=== PATIENT | male | born 1985 | race Caucasian/White ===

== ENCOUNTER 2017-03-12 19:36 | Emergency (ER) | payer OTHER ==
[~2017-03-12] VITALS: Ht 177.8 cm; Wt 85.0 kg
[~2017-03-12 19:36] MED LIST: CEPH500C3 PO; LACT PO
[2017-03-12 19:39] VITALS: BP 144/101; PULSE 81; RESP 16; TEMP 98.7; O2SAT 99
[2017-03-12] MEDS ORDERED: BUPIVACAINE HCL PF 0.5% 30 ML VIAL INFIL ONE (20:00)
[2017-03-12] MEDS ORDERED: TETANUS/DIPHTHERIA TOXOID ADULT 0.5 ML VIAL IM ONE (20:00)
[2017-03-12] MEDS ORDERED: LIDOCAINE HCL 1% 30 ML VIAL INFIL ONE (20:00)
[2017-03-12] MEDS ORDERED: DICL50TA3 PO (20:01)
--- NOTE | 2017-03-12 20:09 | PD ---
HPI Chief Complaint: Laceration/Skin Injury Time Seen by Provider: 20:06 Travel History International Travel<30 days: No Contact w/Intl Traveler<30days: No Traveled to known affect area: No History of Present Illness HPI 31-year-old [id number] white male presents to emergency department with a laceration to the tip of his left thumb. He states that he accidentally cut it with a knife at work today. He states that he has decreased sensation in the tip. No other injury. He has not had a tetanus shot over 5 years. He states his fingers throbbing moderate in intensity. No alleviating factor PFSH Past Medical History Anxiety: No Depression: No Cancer: No Cardiovascular Problems: No Endocrine: No Gastrointestinal Disorders: Yes (GI BLEED) Genitourinary: No Immune Disorder: No Musculoskeletal: No Neurologic: No Psychiatric: No Reproductive: No Respiratory: No Tetanus Vaccination: Unknown Influenza Vaccination: No Past Surgical History Surgical History: No Previous Surgery Social History Alcohol Use: No Tobacco Use: Yes Substance Use: No Allergies-Medications (Allergen,Severity, Reaction): Coded Allergies: No Known Allergies (Unverified , 06/17/14) Uncoded Allergies: NO NARCOTICS (Adverse Reaction, Unknown, 03/21/16) Reported Meds & Prescriptions Reported Meds & Active Scripts Active Diclofenac Sodium DR (Diclofenac Sodium) 50 Mg Tabdr 50 Mg PO TID Lactinex (Lactobacillus Acidophilus) 1 Tab Tab 1 Tab PO Q12HR 30 Days Keflex (Cephalexin Monohydrate) 500 Mg Cap 500 Mg PO Q6 7 Days Review of Systems Except as stated in HPI: all other systems reviewed are Neg Physical Exam Narrative GENERAL: Well-developed, well-nourished in no acute distress. Nontoxic appearing. HEAD: Normocephalic, atraumatic. EYES: Pupils equal round and reactive. Extraocular motions intact. No scleral icterus. No injection or drainage. ENT: TMs clear without erythema. The external auditory canals clear. Nose: clear . Posterior pharynx is pink and moist. No tonsillar edema or exudate. Uvula midline. Airway patent. NECK: Trachea midline.Supple, nontender, moves head freely. No central bony tenderness or spasm. CARDIOVASCULAR: Regular rate and rhythm without murmurs, gallops, or rubs. RESPIRATORY: Clear to auscultation. Breath sounds equal bilaterally. No wheezes , rales, or rhonchi. GASTROINTESTINAL: Abdomen soft, non-tender, nondistended. No hepato-splenomegaly , or palpable masses. No guarding. EXTREMITIES: No clubbing, cyanosis, or edema. No joint tenderness, effusion, or edema noted. Patient has a partial distal tip amputation laceration to the left thumb. The tip of the nailbed is lacerated. It is held on by a small pedicle. He has hypoesthesia in the distal tip. Positive Refill. He is able to flex and extend his thumb without difficulty. No bone exposure. BACK: Nontender without deformity or crepitance. No flank tenderness. Data Data Last Documented VS Vital Signs Date Time Temp Pulse Resp B/P Pulse Ox O2 Delivery O2 Flow Rate FiO2 03/12/17 19:39 98.7 81 16 144/101 99 Orders Bupivacaine Pf 0.5% Inj (Marcaine Pf 0.5 (03/12/17 20:00) Lidocaine 1% Inj (Xylocaine 1% Inj) (03/12/17 20:00) Tetanus/Diphtheria Tox Adult (Tetanus/Di (03/12/17 20:00) MDM Medical Decision Making Medical Screen Exam Complete: Yes Emergency Medical Condition: Yes Medical Record Reviewed: Yes Differential Diagnosis MDM: High Differential diagnoses: Fracture, sprain, strain, dislocation, contusion, neurovascular injury Narrative Course Patient's tetanus status updated. Patient's laceration is closed with sutures. Procedures Procedure Narrative LACERATION LOCATION: Left thumb distal tip LENGTH: 2.3 cm NUMBER OF STITCHES/DENISE: 5 REPAIR: The area of the laceration was prepped with Betadine and sterilely draped. The laceration was infiltrated with 1% lidocaine and 0.5% Marcaine digital block. The wound was copiously irrigated and explored without evidence of foreign body, tendon injury or neurovascular injury. The wound was closed using 4-0 proline. This was a simple single layer repair. A sterile dressing was applied. The patient was advised to keep the dressing clean and dry. Patient tolerated the procedure well. Diagnosis Primary Impression: left thumb partial tip amputation Patient Instructions: General Instructions Additional Instructions: Rest. Elevation. Medications as directed. Daily wound care with soap, water, Neosporin. Sutures out in 12-14 days. Return to the ER if any problems. Med/Other Pt SpecificInfo: Prescription(s) given Scripts Diclofenac Sodium DR 50 Mg Tabdr50 Mg PO TID #21 TAB Prov:Bhupendra Martinez MD 03/12/17 Disposition: 01 DISCHARGE HOME Condition: Stable Tye Peterson Mar 12, 2017 20:09
== END 2017-03-12 21:15 | disposition home or self-care (01) ==
LOC: NEPK 19:36
DX: S61.012A Laceration without foreign body of left thumb without damage to nail, initial encounter (principal); Z23 Encounter for immunization; W26.0XXA Contact with knife, initial encounter; Y93.9 Activity, unspecified; Y92.89 Other specified places as the place of occurrence of the external cause; Z72.0 Tobacco use
CPT/HCPCS: 12001; 90471; 90714

== ENCOUNTER 2017-03-17 16:12 | Emergency (ER) | payer SELFPAY ==
[~2017-03-17] VITALS: Ht 180.3 cm; Wt 110.0 kg
[~2017-03-17 16:12] MED LIST changes: +DICL50TA3 PO
[2017-03-17 16:13] VITALS: BP 139/80; PULSE 86; RESP 14; TEMP 98; O2SAT 99
--- NOTE | 2017-03-17 16:39 | PD ---
HPI . left thumb suture check Chief Complaint: Wound/Suture/Staple Re-Check Time Seen by Provider: 16:39 Travel History International Travel<30 days: No Contact w/Intl Traveler<30days: No Traveled to known affect area: No History of Present Illness HPI 31-year-old male here for recheck of his left thumb sutures. He tells me one of the sutures is loose. He has no other complaints otherwise. PFSH Past Medical History Anxiety: No Depression: No Cancer: No Cardiovascular Problems: No Endocrine: No Gastrointestinal Disorders: Yes (GI BLEED) Genitourinary: No Immune Disorder: No Musculoskeletal: No Neurologic: No Psychiatric: No Reproductive: No Respiratory: No Social History Alcohol Use: No Tobacco Use: Yes Substance Use: No Allergies-Medications (Allergen,Severity, Reaction): Coded Allergies: No Known Allergies (Unverified , 06/17/14) Uncoded Allergies: NO NARCOTICS (Adverse Reaction, Unknown, 03/21/16) Reported Meds & Prescriptions Reported Meds & Active Scripts Active Diclofenac Sodium DR (Diclofenac Sodium) 50 Mg Tabdr 50 Mg PO TID Lactinex (Lactobacillus Acidophilus) 1 Tab Tab 1 Tab PO Q12HR 30 Days Keflex (Cephalexin Monohydrate) 500 Mg Cap 500 Mg PO Q6 7 Days Review of Systems General / Constitutional: No: Fever Eyes: No: Visual changes HENT: No: Headaches Cardiovascular: No: Chest Pain or Discomfort Respiratory: No: Shortness of Breath Gastrointestinal: No: Abdominal Pain Genitourinary: No: Dysuria Musculoskeletal: No: Pain Skin: Positive Other (left thumb suture), No Rash Neurologic: No: Weakness Psychiatric: No: Depression Endocrine: No: Polydipsia Hematologic/Lymphatic: No: Easy Bruising Physical Exam Narrative GENERAL: AAO x 3, no acute distress, Well-nourished, well-developed patient. SKIN: Warm and dry. No visible rashes or bruising. left distal thumb with [address], one suture loose and falling out. no wound dehiscence or evidence of infection HEAD: Normocephalic and atraumatic. EYES: No scleral icterus. No injection or drainage. ENT: No nasal drainage noted.. Airway patent. NECK: Supple, trachea midline. No JVD. CARDIOVASCULAR: Regular rate and rhythm without murmurs, gallops, or rubs. RESPIRATORY: Breath sounds equal bilaterally. No accessory muscle use. No rhonchi or rales. GASTROINTESTINAL: Visual inspection normal EXTREMITIES: No cyanosis or edema. Range of motion bilateral hands normal BACK: Nontender without obvious deformity. No CVA tenderness. PSYCH: AAO x 3, normal affect. Data Data Last Documented VS Vital Signs Date Time Temp Pulse Resp B/P Pulse Ox O2 Delivery O2 Flow Rate FiO2 03/17/17 16:13 98.0 86 14 139/80 99 MDM Medical Decision Making Medical Screen Exam Complete: Yes Emergency Medical Condition: Yes Medical Record Reviewed: Yes Differential Diagnosis Suture recheck, wound has a, less likely cellulitis Narrative Course 31-year-old male here for recheck of his left thumb sutures. He tells me one of the sutures is loose. He has no other complaints otherwise. Patient seen and examined. His sutures are intact except for one, which has been removed. There are 4 sutures remaining. Explained to patient that these can be removed in the next 2 days. Patient verbalized understanding of instructions, questions were answered, and thanked me for their care. I advised them if their condition worsens, please return to the nearest emergency room for further care. Diagnosis Primary Impression: Thumb laceration Qualified Code: S61.012D - Thumb laceration, left, subsequent encounter Patient Instructions: Acute Wound Care (ED), General Instructions, Laceration ( ED) Additional Instructions: Return in 2 days for removal of sutures. There are 4 remaining. Disposition: 01 DISCHARGE HOME Condition: Stable Preeti Kenny March 17, 2017 16:39
== END 2017-03-17 17:03 | disposition home or self-care (01) ==
LOC: NEPK 16:12
DX: S61.012D Laceration without foreign body of left thumb without damage to nail, subsequent encounter (principal); X58.XXXD Exposure to other specified factors, subsequent encounter
CPT/HCPCS: 99281

== ENCOUNTER 2017-06-26 15:17 | Emergency (ER) | payer SELFPAY ==
[~2017-06-26] VITALS: Ht 180.3 cm; Wt 109.0 kg
[2017-06-26 15:18] VITALS: BP 137/93; PULSE 83; RESP 18; TEMP 98.7; O2SAT 98
--- NOTE | 2017-06-26 15:25 | PD ---
Physical Exam Time Seen by Provider: 15:23 Narrative 31yo M c/o abd pain, nausea, and diarrhea started today. Denies fever, vomiting. Patient seen in triage. VS reviewed. Awaiting bed placement. Data Data Last Documented VS Vital Signs Date Time Temp Pulse Resp B/P Pulse Ox O2 Delivery O2 Flow Rate FiO2 06/26/17 15:18 98.7 83 18 137/93 98 Room Air MDM Supervised Visit with DAVIS: No Scripts No Active Prescriptions or Reported Meds Silvana Naranjo Jun 26, 2017 15:25
[2017-06-26] MEDS ORDERED: SODIUM CHLOR 0.9% 1000 ML INJ 1,000 ML IV SCH (17:10)
--- NOTE | 2017-06-26 17:13 | PD ---
HPI Chief Complaint: Abdominal Pain Time Seen by Provider: 17:05 Travel History International Travel<30 days: No Contact w/Intl Traveler<30days: No Traveled to known affect area: No History of Present Illness HPI 31-year-old male here for evaluation of abdominal cramping, nausea, and diarrhea. Symptoms started this afternoon. He denies vomiting. Reports similar episode a couple years ago after eating oysters. Denies history of abdominal surgeries. He is not sure if he has had any fevers. Abdominal cramping is epigastric. PFSH Past Medical History Medical History: Denies Significant Hx Anxiety: No Depression: No Cancer: No Cardiovascular Problems: No Endocrine: No Gastrointestinal Disorders: Yes (GI BLEED) Genitourinary: No Hypertension: Yes Immune Disorder: No Musculoskeletal: No Neurologic: No Psychiatric: No Reproductive: No Respiratory: No Past Surgical History Surgical History: No Previous Surgery Social History Alcohol Use: No Tobacco Use: Yes (/2 PPD) Substance Use: No Allergies-Medications (Allergen,Severity, Reaction): Coded Allergies: No Known Allergies (Unverified , 06/26/17) Uncoded Allergies: NO NARCOTICS (Adverse Reaction, Unknown, 03/21/16) Reported Meds & Prescriptions Reported Meds & Active Scripts Active No Active Prescriptions or Reported Medications Review of Systems Except as stated in HPI: all other systems reviewed are Neg Physical Exam Narrative GENERAL: Well-developed, well-nourished, comfortable, no apparent distress. SKIN: Focused skin assessment warm/dry. HEAD: Atraumatic. Normocephalic. EYES: Pupils equal and round. No scleral icterus. No injection or drainage. ENT: Mucous membranes pink and moist. CARDIOVASCULAR: Regular rate and rhythm. No murmur appreciated. RESPIRATORY: No accessory muscle use. Clear to auscultation. Breath sounds equal bilaterally. GASTROINTESTINAL: Abdomen soft, nondistended. Mild epigastric tenderness without peritoneal signs. Rest of abdomen is soft and nontender. Normal bowel sounds. No hernias. MUSCULOSKELETAL: No obvious deformities. No clubbing. No cyanosis. No edema. NEUROLOGICAL: Awake and alert. No obvious cranial nerve deficits. Motor grossly within normal limits. Normal speech. PSYCHIATRIC: Appropriate mood and affect; insight and judgment normal. Data Data Last Documented VS Vital Signs Date Time Temp Pulse Resp B/P Pulse Ox O2 Delivery O2 Flow Rate FiO2 06/26/17 17:23 100 Room Air 06/26/17 17:23 72 18 140/91 06/26/17 15:18 98.7 Orders Complete Blood Count With Diff (06/26/17 17:10) Comprehensive Metabolic Panel (06/26/17 17:10) Lipase (06/26/17 17:10) Prothrombin Time / Inr (Pt) (06/26/17 17:10) Act Partial Throm Time (Ptt) (06/26/17 17:10) Urinalysis - C+S If Indicated (06/26/17 17:10) Iv Access Insert/Monitor (06/26/17 17:10) Ecg Monitoring (06/26/17 17:10) Oximetry (06/26/17 17:10) Ondansetron Inj (Zofran Inj) (06/26/17 17:15) Sodium Chlor 0.9% 1000 Ml Inj (Ns 1000 M (06/26/17 17:10) Sodium Chloride 0.9% Flush (Ns Flush) (06/26/17 17:15) Electrocardiogram (06/26/17 17:10) Labs Laboratory Tests Test 06/26/17 06/26/17 17:30 17:31 Urine Color YELLOW Urine Turbidity CLEAR Urine pH 6.0 Urine Specific [place] 1.017 Urine Protein NEG mg/dL Urine Glucose (UA) NEG mg/dL Urine Ketones NEG mg/dL Urine Occult Blood NEG Urine Nitrite NEG Urine Bilirubin NEG Urine Urobilinogen LESS THAN 2.0 MG/DL Urine Leukocyte Esterase NEG Urine RBC LESS THAN 1 /hpf Urine WBC LESS THAN 1 /hpf Microscopic Urinalysis Comment CULT NOT INDICATED White Blood Count 7.5 TH/MM3 Red Blood Count 4.82 MIL/MM3 Hemoglobin 15.2 GM/DL Hematocrit 43.6 % Mean Corpuscular Volume 90.4 FL Mean Corpuscular Hemoglobin 31.5 PG Mean Corpuscular Hemoglobin 34.9 % Concent Red Cell Distribution Width 13.0 % Platelet Count 225 TH/MM3 Mean Platelet Volume 8.2 FL Neutrophils (%) (Auto) 67.3 % Lymphocytes (%) (Auto) 23.0 % Monocytes (%) (Auto) 8.0 % Eosinophils (%) (Auto) 1.4 % Basophils (%) (Auto) 0.3 % Neutrophils # (Auto) 5.1 TH/MM3 Lymphocytes # (Auto) 1.7 TH/MM3 Monocytes # (Auto) 0.6 TH/MM3 Eosinophils # (Auto) 0.1 TH/MM3 Basophils # (Auto) 0.0 TH/MM3 CBC Comment DIFF FINAL Differential Comment Prothrombin Time 10.1 SEC Prothromb Time International 0.9 RATIO Ratio Activated Partial 25.2 SEC Thromboplast Time Sodium Level 137 MEQ/L Potassium Level 4.1 MEQ/L Chloride Level 103 MEQ/L Carbon Dioxide Level 28.5 MEQ/L Anion Gap 6 MEQ/L Blood Urea Nitrogen 13 MG/DL Creatinine 0.80 MG/DL Estimat Glomerular Filtration 112 ML/MIN Rate Random Glucose 88 MG/DL Calcium Level 9.2 MG/DL Total Bilirubin 0.5 MG/DL Aspartate Amino Transf 23 U/L (AST/SGOT) Alanine Aminotransferase 41 U/L (ALT/SGPT) Alkaline Phosphatase 90 U/L Total Protein 7.8 GM/DL Albumin 4.0 GM/DL Lipase 104 U/L [facility] Medical Decision Making Medical Screen Exam Complete: Yes Emergency Medical Condition: Yes Medical Record Reviewed: Yes Differential Diagnosis Gastritis, peptic ulcer disease, pancreatitis, hepatobiliary disease, food poisoning, colitis, appendicitis less likely Narrative Course Vital signs show heart rate 83, blood pressure 137/93, pulse ox 98% on room air , oral temp of 98.7F. CBC is unremarkable. CMP is unremarkable. Lipase is 104. UA is not suggestive of UTI. Patient was made aware of all findings. He is resting comfortably. He has some epigastric tenderness which is mild. There are no peritoneal signs. I do not believe that there is an acute intra-abdominal process/surgical process to warrant imaging at this time. This was discussed with the patient at length. He also believes that he may have food poisoning. At this point I believe he is stable for discharge home with outpatient follow-up with a primary care physician this week. Patient informed to keep hydrated. He was informed on when to return to the emergency department. He verbalizes understanding and agreement with plan. Diagnosis Primary Impression: Epigastric abdominal pain Additional Impressions: Nausea Diarrhea Qualified Code: R19.7 - Diarrhea, unspecified type Referrals: Primary Care Physician 3 days Additional Instructions: Follow-up with a primary care physician this week. See hydrated with plenty of fluids. Return to the emergency department for worsening symptoms or any other concerns. Scripts Ondansetron Odt (Zofran Odt)4 Mg Tab4 Mg SL Q8HR PRN (Nausea/Vomiting) #30 TAB Ref 0 Prov:Sergey Grimes MD 06/26/17 Pantoprazole (Protonix)40 Mg Tab40 Mg PO DAILY #30 TAB Ref 0 Prov:Sergey Grimes MD 06/26/17 Disposition: 01 DISCHARGE HOME Condition: Stable Sergey Grimes MD Jun 26, 2017 17:13
[2017-06-26] MEDS ORDERED: SODIUM CHLORIDE 0.9% FLUSH 10 ML FLUSH IV FLUSH PRN (17:15)
[2017-06-26] MEDS ORDERED: ONDANSETRON HCL 4 MG/2 ML VIAL IVP ONE (17:15)
[2017-06-26 17:23] VITALS: BP 140/91; PULSE 72; RESP 18; O2SAT 100
[2017-06-26 18:03] LABS: AUTOMATED NEUTROPHIL # 5.1 TH/MM3 (1.8-7.7); BASOPHIL % 0.3 % (0.0-2.0); EOSINOPHIL # 0.1 TH/MM3 (0-0.4); EOSINOPHIL % 1.4 % (0.0-4.0); HEMATOCRIT 43.6 % (39.0-51.0); HEMO FLAGS DIFF FINAL; LYMPHOCYTE # 1.7 TH/MM3 (1.0-4.8); MEAN CELL VOLUME 90.4 FL (80.0-100.0); MEAN CORPUSCULAR HEMOGLOBIN 31.5 PG (27.0-34.0); MEAN CORPUSCULAR HGB CONC 34.9 % (32.0-36.0); NEUT % 67.3 % (16.0-70.0); PLATELET COUNT 225 TH/MM3 (150-450); RED BLOOD COUNT 4.82 MIL/MM3 (4.50-5.90); WHITE BLOOD COUNT 7.5 TH/MM3 (4.0-11.0)
[2017-06-26 18:06] LABS: BLOOD, URINE NEG (NEG); COMMENT (UR) CULT NOT INDICATED; CULTURE IF INDICATED CULT NOT INDICATED; GLUCOSE,URINE NEG (NEG); KETONE, URINE NEG (NEG); NITRITE,URINE NEG (NEG); URINE COLOR YELLOW (YELLW/STRAW)
[2017-06-26 18:16] LABS: APTT (PATIENT) 25.2 SEC (24.3-30.1); INTERNATIONAL NORMALIZED RATIO 0.9 RATIO; PROTHROMBIN TIME - PATIENT 10.1 SEC (9.8-11.6)
[2017-06-26 18:24] LABS: ALT (GPT) 41 U/L (12-78); ANION GAP 6 MEQ/L (5-15); AST (GOT) 23 U/L (15-37); BICARBONATE 28.5 MEQ/L (21.0-32.0); BLOOD UREA NITROGEN 13 MG/DL (7-18); CHLORIDE 103 MEQ/L (98-107); GLOMERULAR FILTRATION RATE 112 ML/MIN (>89); POTASSIUM 4.1 MEQ/L (3.5-5.1); SODIUM (NA) 137 MEQ/L (136-145)
[2017-06-26 18:26] LABS: ALKALINE PHOSPHATASE 90 U/L (45-117); TOTAL BILIRUBIN ADULT 0.5 MG/DL (0.2-1.0)
[2017-06-26] MEDS ORDERED: PROT40TA PO (18:37)
[2017-06-26] MEDS ORDERED: ZOFR4TAB3 SL (18:37)
--- NOTE | 2017-06-27 05:10 | EKG ---
Date Performed: 06/26/2017 Time Performed: 17:31:56 PTAGE: 31 years EKG: SINUS BRADYCARDIA BORDERLINE ECG NO PREVIOUS TRACING DOCTOR: Jerad Silva Interpretating Date/Time 06/27/2017 05:10:26
== END 2017-06-26 19:19 | disposition home or self-care (01) ==
LOC: NEPD 15:17
DX: R10.13 Epigastric pain (principal); R19.7 Diarrhea, unspecified; R11.0 Nausea; F17.200 Nicotine dependence, unspecified, uncomplicated
CPT/HCPCS: 80053; 81001; 83690; 85025; 85610; 85730; 93005; 96374; 99284; J2405; J7030